=== PATIENT | female | born 1985 | race Caucasian/White ===

== ENCOUNTER → 2020-05-02 15:56 | Outpatient (CLI) | payer OTHER, SELFPAY ==
--- NOTE | ~2020-05-02 | US_ITS ---
EXAMINATION: US thyroid DATE: 05/02/2020 16:16 INDICATION: Disorder of thyroid. Hypothyroidism. TECHNIQUE: Multiple ultrasound images of the thyroid were obtained. COMPARISON: None. FINDINGS: The right thyroid lobe measures 7.2 x 1.9 x 1.2 cm. The left thyroid lobe measures 6.7 x 1.7 x 1.6 c m. The thyroid is diffusely heterogeneous and hypoechoic with increased vascularity. No discrete nod ule. IMPRESSION: 1. Heterogeneous, hypervascular thyroid, consistent with chronic lymphocytic (Odilia) thyroiditis. Reviewed, dictated and finalized at location A. 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 Heterogeneous, hypervascular thyroid, consistent with chronic lymphocytic (H ashimoto) thyroiditis.
== END ==
PROVIDERS: PCP Internal Medicine; Visit Provider Nurse Practitioner
DX: E03.9 Hypothyroidism, unspecified (principal)
CPT/HCPCS: 76536

== ENCOUNTER 2023-02-26 10:17 | Emergency (ER) | payer OTHER, SELFPAY ==
--- NOTE | ~2023-02-26 | US_ITS ---
EXAMINATION: US OB <=14 wk fetus w TV DATE: 02/26/2023 11:52 INDICATION: Vaginal bleeding during first trimester . TECHNIQUE: Real-time pelvic ultrasound utilizing both a transvaginal and transabdominal probe was pe rformed. The interpreting radiologist was not present for the study. COMPARISON: None. FINDINGS: The retroverted uterus measures 8.7 x 4.9 x 4.8 cm. 4 mm nabothian cyst at the cervix. The endometria l complex appears somewhat heterogeneous measuring up to 5 mm in thickness with no evident intrauteri ne gestational sac. The right ovary measures 3.8 x 2.0 x 1.7 cm. The left ovary measures 3.7 x 2.0 x 2.1 cm. Vascular flow identified in both ovaries on color Doppler. There are few subcentimeter anecho ic cysts/follicles at both ovaries. No other abnormal masses identified at the bilateral adnexal lorraine ons. There is minimal free fluid in the pelvis. IMPRESSION: 1. No evident intrauterine gestational sac for which differential would include early , fail ed or ectopic although no lesions suspicious for ectopic are identified . Recommend follow-up with serial beta-hCG levels. Reviewed, dictated and finalized at location A. IMPRESSION: 1. No evident intrauterine gestational sac for which differential would include early , failed or ectopic although no lesions alexander picious for ectopic are identified. Recommend follow-up with serial b eta-hCG levels.
[2023-02-26 10:25] VITALS: BP 150/101; PULSE 85; RESP 18; TEMP 36.9; O2SAT 100
--- NOTE | 2023-02-26 10:43 | ED.GENADULT ---
HPI - General Adult General Chief complaint: Vaginal Bleeding Stated complaint: vb Time Seen by Provider: 02/26/23 10:21 History of Present Illness HPI narrative: Kassie Alberto is a 38 y/o female who reports she is and took a positive test at home two days ago which would put her at 6 weeks 2 days. She states that she started to have lower back pain 5 days ago that has progressively worsened and she started to have vaginal bleeding today while walking her dog that is similar to her menstrual cycle. Denies any abdominal pain/ nausea/vomiting. Related Data Home Medications Medication Instructions Recorded Confirmed levothyroxine 50 mcg tablet 50 mcg 02/26/23 Allergies Allergy/AdvReac Type Severity Reaction Status Date / Time No Known Allergies Allergy Unverified 02/26/23 10:32 Review of Systems Review of Systems: CONSTITUTIONAL: Denies fever, chills, or sweats. EYES: Denies visual changes, redness, or discharge. ENT: Denies rhinorrhea, congestion, sore throat, or otalgia. CARDIOVASCULAR: Denies chest pain, palpitations, or edema. RESPIRATORY: Denies cough or dyspnea. GASTROINTESTINAL: Denies abdominal pain, nausea, vomiting, or diarrhea. GENITOURINARY: Denies dysuria or hematuria. SKIN: Denies rash or itching. MUSCULOSKELETAL: complains of lower back pain, no joint pain, or myalgia. NEUROLOGIC: Denies headache, numbness, dizziness, or weakness. PSYCHIATRIC: Denies anxiety or depression. [facility] Family History Family History Other Cerebrovascular accident Diabetes mellitus Family history of allergic disorder Family history of cardiovascular disease Family history of malignant neoplasm Hypertension Social History Social History Smoking status: Current every day smoker Alcohol intake: current Exam Narrative: GENERAL: Well-appearing, well-nourished, and in no acute distress. HEAD: Normocephalic, atraumatic. EYES: PERRLA and EOMI. ENT: Nares clear, no rhinorrhea or epistaxis. Mucous membranes moist. Oropharynx without tonsillar hypertrophy exudate or other lesions. NECK: Supple. No adenopathy or masses. No carotid bruits or JVD CHEST: Clear to auscultation. No respiratory distress. No wheezes rales or rhonchi HEART: Regular rate and rhythm. No murmur heard. Normal peripheral pulses. ABDOMEN: Soft, nontender, nondistended, normal active bowel sounds. EXTREMITIES: Normal range of motion. No edema. SKIN: Warm, dry, no rash. NEURO: No focal deficits. Alert and oriented x3. PSYCH: Normal mood and affect. Course Vital Signs Vital signs: Vital Signs Temperature 36.9 C 02/26/23 10:25 Pulse Rate 85 02/26/23 10:25 Respiratory Rate 18 02/26/23 10:25 Blood Pressure 150/101 H 02/26/23 10:25 Pulse Oximetry 100 02/26/23 10:25 Oxygen Delivery Room Air 02/26/23 10:25 Temperature 36.9 C 02/26/23 10:25 Pulse Rate 85 02/26/23 10:25 Respiratory Rate 18 02/26/23 10:25 Blood Pressure 150/101 H 02/26/23 10:25 Pulse Oximetry 100 02/26/23 10:25 Oxygen Delivery Room Air 02/26/23 10:25 Medical Decision Making MDM Narrative Medical decision making narrative: Patients labs are stable/ Beta quant is negative/ urine preg is negative US is not showing evidence of IUP or ectopic pt is RH negative - called Dr. Treviño regarding pt's case and she confirms that pt does not need the Rhogam shot as of now since there is no evidence of a . Patient updated on results and plan for d/c home with follow up wtih OB Patient verbalizes understanding and all questions answered. Differential Diagnosis Differential Diagnosis: / Ectopic / Threatened miscarriage/ Menstural cycle Medical Records Medical records reviewed: Yes I reviewed the external patient's medical records. Vital Signs Vital Signs: Vital Signs
[2023-02-26 10:45] LABS: Basophils Percent Auto 0.4 % (0.2-1.2); Eosinophils Absolute Auto 0.2 K/mm3 (0-0.3); Eosinophils Percent Auto 1.7 % (0-4.4); Hematocrit 41.7 % (37.0-47.0); Hemoglobin 14.1 g/dL (12.0-15.0); Immature Granulocyte Absolute 0.02 K/mm3 (0.00-0.031); Immature Granulocyte Percent A 0.2 % (0-0.5); Lymphocytes Absolute Auto 3.07 K/mm3 (0.9-3.2); Lymphocytes Percent Auto 30.7 % (18.3-44.2); Mean Corpuscular HGB Conc 33.8 g/dl (32-36); Mean Corpuscular Hemoglobin 31.4 pg (26-34); Mean Corpuscular Volume 92.9 fl (80-100); Mean Platelet Volume 10.8 fl (7.4-10.4); Monocytes Absolute Auto 0.5 K/mm3 (0.1-0.6); Monocytes Percent Auto 5.1 % (2.6-8.5); Neutrophils Absolute Auto 6.2 K/mm3 (1.3-6.7); Neutrophils Percent Auto 61.9 % (45.5-73.1); Platelet Count Result 239 k/mm3 (150-375); Red Blood Count 4.49 M/mm3 (4.2-5.4); Red Cell Distribution Width 12.2 % (11.5-14.5)
[2023-02-26 11:18] LABS: Beta HCG Quantitative < 2.39 mIU/ML
[2023-02-26 12:28] VITALS: BP 120/87; PULSE 88; RESP 18; O2SAT 99
== END 2023-02-26 12:29 | disposition home or self-care (01) ==
PROVIDERS: Emergency Provider Nurse Practitioner Family; PCP Nurse Practitioner Family
DX: N93.9 Abnormal uterine and vaginal bleeding, unspecified (principal); F17.200 Nicotine dependence, unspecified, uncomplicated
CPT/HCPCS: 36415; 76801; 76817; 84702; 85025; 85461; 86850; 86900; 86901; 90384; 99284; J2790

== ENCOUNTER 2023-12-05 11:32 | Outpatient (RCR) | payer OTHER, SELFPAY ==
[2023-12-05] MEDS: RHO(D) IMMUNE GLOBULIN 300 MCG/2 ML SYRINGE IM (13:47)
== END 2024-03-04 23:59 | disposition home or self-care (01) ==
LOC: ANHLAB 11:32
PROVIDERS: PCP Nurse Practitioner Family; Visit Provider Obstetrics & Gynecology
DX: Z29.13 Encounter for prophylactic Rho(D) immune globulin (principal); O36.0190 Maternal care for anti-D [Rh] antibodies, unspecified trimester, not applicable or unspecified; Z3A.00 Weeks of gestation of pregnancy not specified
CPT/HCPCS: 36415; 85461; 86850; 86900; 86901; 90384; 96372; J2790

== ENCOUNTER 2024-02-20 08:58 | Outpatient (RCR) | payer OTHER, SELFPAY ==
[2023-12-26 10:55] VITALS: BP 118/68; PULSE 91
[2024-01-02 11:02] VITALS: BP 120/73; PULSE 92
[2024-01-09 16:01] VITALS: BP 123/76; PULSE 92
[2024-01-16 09:38] VITALS: BP 116/72; PULSE 85
[2024-01-23 09:39] VITALS: BP 117/73; PULSE 95
[2024-01-30 13:22] VITALS: BP 119/70; PULSE 90
[2024-02-06 10:29] VITALS: BP 116/76; PULSE 89
[2024-02-13 09:39] VITALS: BP 117/62; PULSE 76
--- NOTE | ~2024-02-20 | US_ITS ---
EXAMINATION: US OB BPP wo non-stress DATE: 02/20/2024 10:01 INDICATION: Advanced maternal age. Hypothyroidism. Third trimester. TECHNIQUE: Real-time pelvic ultrasound was performed. COMPARISON: Ultrasound 02/13/2024 FINDINGS: There is a single living fetus in vertex presentation. The placenta is anterior. heart rate is 155 beats per minute (bpm). The deepest vertical pocket is 6.0 cm, which is normal. Biophysical profile performed by the technologist: breathing (30 sec sustained breathing in 30 minutes): 2 out of 2 movement (3 gross body movements in 30 minutes): 2 out of 2 tone (one episode of mjmnzli-drlpgrevl-cyiuxxg limb movement): 2 out of 2 Amniotic fluid pocket (2 cm): 2 out of 2 Total score: 8 out of 8 IMPRESSION: 1. Single living fetus in vertex presentation. 2. Biophysical profile 8 out of 8. Reviewed, dictated and finalized at location A.
--- NOTE | ~2024-02-20 | US_ITS ---
EXAMINATION: US OB BPP wo non-stress DATE: 02/06/2024 11:06 INDICATION: Advanced maternal age TECHNIQUE: Real-time pelvic ultrasound was performed. The interpreting radiologist was not present fo r the study. COMPARISON: None. FINDINGS: There is a single living fetus in vertex presentation. The placenta is anterior. cardiac activ ity and movement are demonstrated. heart rate is 148 beats per minute (bpm). Biophysical profile performed by the technologist: breathing (30 sec sustained breathing in 30 minutes): 2 out of 2 movement (3 gross body movements in 30 minutes): 2 out of 2 tone (one episode of jcndhrs-nsuxzslpv-ciudcro limb movement): 2 out of 2 Amniotic fluid pocket (2 cm): 2 out of 2 Total score: 8 out of 8 IMPRESSION: 1. Single living intrauterine in vertex presentation with heart rate of 148 bpm. 2. Normal placenta. 3. Biophysical profile 8 out of 8. Reviewed, dictated and finalized at location B.
--- NOTE | ~2024-02-20 | US_ITS ---
EXAMINATION: US OB BPP wo non-stress DATE: 02/13/2024 09:59 INDICATION: Advanced maternal age and third trimester . Hypothyroidism. TECHNIQUE: Real-time pelvic ultrasound was performed. The interpreting radiologist was not present fo r the study. COMPARISON: None. FINDINGS: There is a single living fetus in vertex presentation. The placenta is anterior. heart rate is 140 beats per minute (bpm). Amniotic fluid volume is subjectively normal with normal deepest vertica l pocket measurement of 7.3 cm. Biophysical profile performed by the technologist: breathing (30 sec sustained breathing in 30 minutes): 2 out of 2 movement (3 gross body movements in 30 minutes): 2 out of 2 tone (one episode of eycbhge-yqincnlgl-zqmodcg limb movement): 2 out of 2 Amniotic fluid pocket (2 cm): 2 out of 2 Total score: 8 out of 8 IMPRESSION: 1. Single living fetus in vertex presentation with heart rate of 140 bpm. 2. Biophysical profile 8 out of 8. Reviewed, dictated and finalized at location A.
--- NOTE | ~2024-02-20 | US_ITS ---
EXAMINATION: US OB BPP wo non-stress DATE: 01/30/2024 13:23 INDICATION: Advanced maternal age and hypothyroidism during third trimester TECHNIQUE: Real-time pelvic ultrasound was performed. The interpreting radiologist was not present fo r the study. COMPARISON: None. FINDINGS: There is a single living fetus in vertex presentation. The placenta is anterior. heart rate is 141 beats per minute (bpm). Amniotic fluid volume is subjectively normal with normal because vertica l pocket of 7.9 cm Biophysical profile performed by the technologist: breathing (30 sec sustained breathing in 30 minutes): 2 out of 2 movement (3 gross body movements in 30 minutes): 2 out of 2 tone (one episode of hbykkcr-iyasaxayd-gthzqjd limb movement): 2 out of 2 Amniotic fluid pocket (2 cm): 2 out of 2 Total score: 8 out of 8 IMPRESSION: 1. Single living fetus in vertex presentation with heart rate of 141 bpm. 2. Biophysical profile 8 out of 8. Reviewed, dictated and finalized at location A.
[2024-02-20 09:34] VITALS: BP 125/68; PULSE 97
== END 2024-03-25 23:59 | disposition home or self-care (01) ==
LOC: ANHOBOP 08:58
PROVIDERS: PCP Nurse Practitioner Family; Visit Provider Obstetrics & Gynecology
DX: O09.513 Supervision of elderly primigravida, third trimester (principal); O99.283 Endocrine, nutritional and metabolic diseases complicating pregnancy, third trimester; E03.9 Hypothyroidism, unspecified; Z3A.31 31 weeks gestation of pregnancy; Z3A.32 32 weeks gestation of pregnancy; Z3A.33 33 weeks gestation of pregnancy; Z3A.34 34 weeks gestation of pregnancy; Z3A.35 35 weeks gestation of pregnancy; Z3A.37 37 weeks gestation of pregnancy; Z3A.38 38 weeks gestation of pregnancy; Z3A.39 39 weeks gestation of pregnancy
CPT/HCPCS: 59025; 76819

== ENCOUNTER 2024-02-22 16:27 | Inpatient (IN) | payer OTHER, SELFPAY ==
[2024-02-22] VITALS (14 sets, daily range): BP systolic 108–133; BP diastolic 57–82; PULSE 81–97; TEMP 36.6; BMI 34.0
[2024-02-22 17:24] LABS: Basophils Percent Auto 0.3 % (0.2-1.2); Eosinophils Absolute Auto 0.3 K/mm3 (0-0.3); Eosinophils Percent Auto 1.9 % (0-4.4); Hematocrit 35.1 % (37.0-47.0); Hemoglobin 11.8 g/dL (12.0-15.0); Immature Granulocyte Absolute 0.08 K/mm3 (0.00-0.031); Immature Granulocyte Percent A 0.6 % (0-0.5); Lymphocytes Absolute Auto 3.55 K/mm3 (0.9-3.2); Lymphocytes Percent Auto 24.6 % (18.3-44.2); Mean Corpuscular HGB Conc 33.6 g/dl (32-36); Mean Corpuscular Hemoglobin 31.6 pg (26-34); Mean Corpuscular Volume 93.9 fl (80-100); Mean Platelet Volume 11.3 fl (7.4-10.4); Monocytes Absolute Auto 0.8 K/mm3 (0.1-0.6); Monocytes Percent Auto 5.7 % (2.6-8.5); Neutrophils Absolute Auto 9.7 K/mm3 (1.3-6.7); Neutrophils Percent Auto 66.9 % (45.5-73.1); Platelet Count Result 257 k/mm3 (150-375); Red Blood Count 3.74 M/mm3 (4.2-5.4); Red Cell Distribution Width 13.3 % (11.5-14.5); White Blood Count 14.5 K/mm3 (4.5-10.0)
[2024-02-22] MEDS: DINOPROSTONE 10 MG VAG INSERT VAGINAL (17:33)
[2024-02-22 18:42] LABS: HIV 1/2 Ab P24 Ag Result Negative (Negative)
--- NOTE | 2024-02-22 20:26 | PM.IMHP ---
H&P: HPI History of Present Illness Date/Time: 02/22/24 20:30 Chief Complaint: IOL Narrative: Kassie is a 39yo @ 39.6wks who presents for IOL. She has had regular care and co-management with [facility]. She has been undergoing routine weekl testing as well. She denies any regular contractions. No VB or LOF. She reports good movement. No painful lesions concerning for HSV outbreak; has been taking her valtrex. Her is complicated by: - AMA; ASA; NIPT/MFM referral for anatomy - Rh negative; s/p rhogam - Hypothyroidism; thyroid labs qTrimester - Tobacco abuse; encouraged to stop - H/o genital HSV; ppx at 36wks Review of Systems Constitutional: Constitutional: Denies chills, Denies fever(s) and Denies headache(s) Eyes: Eyes: Denies change in vision ENT: Denies headache(s) Cardiovascular: Cardiovascular: Denies chest pain and Denies dyspnea Respiratory: Respiratory: Denies dyspnea Genitourinary: Genitourinary: Denies abnormal vaginal bleeding and Denies vaginal discharge Neurologic: Denies headache(s) Psychiatric: Psychiatric: Denies anxiety and Denies depression [facility] Past Medical History Medical History Cholecystectomy planned Hypothyroid Tonsillectomy planned Family History Family History Other Cerebrovascular accident Diabetes mellitus Family history of allergic disorder Family history of cardiovascular disease Family history of malignant neoplasm Hypertension Lung cancer Social History Social History Smoking packs per day: 0.5 Smoking cigarettes per day: 10.0 Years smoked: 10 Smoking pack-years: 5.00 Smoking status: Current every day smoker Tobacco type: cigarettes Second hand tobacco smoke exposure: No Alcohol intake: former Substance use: never Do You Feel Safe in your Home?: Yes Lack of Transportation: No Lack of Food: Never True Current Housing: I Have Housing Concerned About Future Housing: No Difficulty Paying Gas/Electric Bills: No Difficulty Paying for Meds: No Currently Unemployed: No Education: Associate Degree Difficulty w/ Childcare or Family Care: No Living arrangements: with family Occupation/Education: occupation Gender identity (if verbalized by the patient): Female Sexual Orientation (if Verbalized by the Patient): Straight or Heterosexual Spiritual care concerns: No Meds Home Medications and Allergies Home Medications Medication Instructions Recorded Confirmed Type aspirin 81 mg tablet 162 mg PO DAILY 01/30/24 02/18/24 History prenat.vits,benjy,adj-dbiq-xnoan 1 tablet PO QAM 01/30/24 02/22/24 History levothyroxine 25 mcg capsule 25 mcg PO DAILY #90 caps 02/04/24 02/22/24 Rx levothyroxine 150 mcg capsule 150 mcg PO DAILY 02/13/24 02/22/24 History valacyclovir 500 mg tablet 500 mg PO DAILY 02/22/24 02/22/24 History (Valtrex) Allergies Allergy/AdvReac Type Severity Reaction Status Date / Time No Known Allergies Allergy Verified 02/13/24 10:23 Exam Const: General: cooperative, healthy appearing, comfortable and no acute distress Nutritional Appearance: obese Orientation/consciousness: patient oriented x3 Resp: Effort & Inspection: normal respiratory effort Cardio: Rate: regular rate GI: GI Palp: No abdominal tenderness : Other: FHT's: 130's/ mod ed/ + accels/ no decels - cat 1 TOCO: irregular ctxs Cervix: 1/thick/-2 Membranes: intact Presentation: cephalic Skin: General skin exam: normal color Neuro: General: patient oriented x3 Extrem: General: normal to inspection Psych: Appearance: grossly normal Affect: normal affect Attitude: cooperative Assessment and Plan Assessment and plan (1) Encounter for induction of labor: Code(s): Z34.90 - Encounter for supervision of
[2024-02-22 22:00] LABS: Rapid Plasma Reagin Non-Reactive (NonReactive)
[2024-02-23] VITALS (238 sets, daily range): BP systolic 92–140; BP diastolic 36–124; PULSE 70–136; TEMP 36.3–36.7; O2SAT 91–100
--- NOTE | 2024-02-23 06:17 | WPDANESEPP ---
Anes - Eval Pre Procedure Procedure: Labor Epidural Date/Time: 02/23/24 06:17 Surgeon: Juan Preop Diagnosis: Labor Pain Pre Op Diagnosis: Induction of Labor Patient Data Age: 39 Gender: F Height: 1.68 m Weight: 95.5 kg Last Vital Signs Temp 36.6 C 02/22/24 21:30 Pulse 84 02/23/24 06:16 BP 103/62 02/23/24 06:16 O2 Del Method Room Air 02/22/24 17:17 Allergies Allergy/AdvReac Type Severity Reaction Status Date / Time No Known Allergies Allergy Verified 02/13/24 10:23 Home Medications Medication Instructions Recorded Confirmed Type aspirin 81 mg tablet 162 mg PO DAILY 01/30/24 02/18/24 History prenat.vits,benjy,xxz-dsri-pwhoi 1 tablet PO QAM 01/30/24 02/22/24 History levothyroxine 25 mcg capsule 25 mcg PO DAILY #90 caps 02/04/24 02/22/24 Rx levothyroxine 150 mcg capsule 150 mcg PO DAILY 02/13/24 02/22/24 History valacyclovir 500 mg tablet 500 mg PO DAILY 02/22/24 02/22/24 History (Valtrex) Laboratory Tests 02/22/24 02/22/24 17:12 18:15 WBC 14.5 H K/mm3 (4.5-10.0) RBC 3.74 L M/mm3 (4.2-5.4) Hgb 11.8 L g/dL (12.0-15.0) Hct 35.1 L % (37.0-47.0) MCV 93.9 fl (80-100) MCH 31.6 pg (26-34) MCHC 33.6 g/dl (32-36) RDW 13.3 % (11.5-14.5) Plt Count 257 k/mm3 (150-375) MPV 11.3 H fl (7.4-10.4) Immature Gran % (Auto) 0.6 H % (0-0.5) Neut % (Auto) 66.9 % (45.5-73.1) Lymph % (Auto) 24.6 % (18.3-44.2) [place] % (Auto) 5.7 % (2.6-8.5) Eos % (Auto) 1.9 % (0-4.4) Baso % (Auto) 0.3 % (0.2-1.2) Lymph # (Auto) 3.55 H K/mm3 (0.9-3.2) [place] # (Auto) 0.8 H K/mm3 (0.1-0.6) Eos # (Auto) 0.3 K/mm3 (0-0.3) Baso # (Auto) 0.0 K/mm3 (0.0-0.1) Abs Immat Gran (auto) 0.08 H K/mm3 (0.00-0.031) Absolute Neuts (auto) 9.7 H K/mm3 (1.3-6.7) Absolute Nucleated RBC 0.000 K/mm3 (0.0-0.012) Nucleated RBC % 0.0 % (0.0-0.2) RPR Non-reactive (NonReactive) HIV 1&2 Ab/P24 Ag 4thGn Negative (Negative) Blood Type B Negative Antibody Screen Negative : gestational age (SHIVAM 02/23/24, ) Patient hx anesthesia problems: none Family hx anesthesia problems: none Results Review: All pre-operative results and documents have been reviewed as part of the pre-operative evaluation. [facility] Past Medical History Medical History Cholecystectomy planned Hypothyroid Tonsillectomy planned Family History Family History Other Cerebrovascular accident Diabetes mellitus Family history of allergic disorder Family history of cardiovascular disease Family history of malignant neoplasm Hypertension Lung cancer Social History Social History Smoking packs per day: 0.5 Smoking cigarettes per day: 10.0 Years smoked: 10 Smoking pack-years: 5.00 Smoking status: Current every day smoker Tobacco type: cigarettes Second hand tobacco smoke exposure: No Alcohol intake: former Substance use: never Do You Feel Safe in your Home?: Yes Lack of Transportation: No Lack of Food: Never True Current Housing: I Have Housing Concerned About Future Housing: No Difficulty Paying Gas/Electric Bills: No Difficulty Paying for Meds: No Currently Unemployed: No Education: Associate Degree Difficulty w/ Childcare or Family Care: No Living arrangements: with family Occupation/Education: occupation Gender identity (if verbalized by the patient): Female Sexual Orientation (if Verbalized by the Patient): Straight or Heterosexual Spiritual care concerns: No Exam Day of Procedure 02/23/24 06:17 Patient weight: normal Heart: regular rate and rhythm Lungs: normal air movement Airway: M
[2024-02-23] MEDS: LACTATED RINGERS 1,000 ML 125 ML IV CONT ×3 (06:22→16:31)
[2024-02-23] MEDS: OXYTOCIN 30 UNITS/NS 500 ML 30 UNITS/500 ML BAG IV CONT (06:22)
--- NOTE | 2024-02-23 08:39 | PM.OBPNLAB ---
Pain Control Date/time seen: 02/23/24 08:39 Pain control: tolerating well Pelvic Exam Dilation (cm): 3 Effacement (%): 0 station: -2 Amniotic membrane status: Ruptured (AROM, clear 0745) Contractions Monitor mode: External Contraction frequency: 4 Status status: Category l Assessment and Plan Pitocin rate (mU/min): 2 Assessment: induction ongoing Plan: continuous present management
--- NOTE | 2024-02-23 11:43 | PM.OBPNLAB ---
Pain Control Date/time seen: 02/23/24 11:43 Pain control: epidural Pelvic Exam Dilation (cm): 5 Effacement (%): 50 station: -2 Amniotic membrane status: Ruptured (AROM, clear 0745) Contractions Monitor mode: Internal Contraction pattern: Irregular Status status: Category l Assessment and Plan Pitocin rate (mU/min): 8 Assessment: induction ongoing Plan: continuous present management Comments: - IUPC placed on this exam to verify contractions are adequate
[2024-02-23] MEDS: ACETAMINOPHEN 500 MG TABLET 1000 MG PO (12:02)
--- NOTE | 2024-02-23 15:04 | PM.OBPNLAB ---
Pain Control Date/time seen: 02/23/24 15:04 Pain control: epidural Pelvic Exam Dilation (cm): 5 (.5) Effacement (%): 50 station: -2 Amniotic membrane status: Ruptured (AROM, clear 0745) Contractions Monitor mode: Internal Contraction frequency: 3 Contraction pattern: Irregular Status status: Category l Assessment and Plan Pitocin rate (mU/min): 16 Assessment: induction ongoing Plan: continuous present management
--- NOTE | 2024-02-23 19:55 | PM.OBPNLAB ---
Pain Control Date/time seen: 02/23/24 19:55 Pain control: epidural Pelvic Exam Dilation (cm): 8 Effacement (%): 80 station: -2 Amniotic membrane status: Ruptured (AROM, clear 0745) Comments: head: ROP/almost ROT Contractions Monitor mode: Internal Contraction frequency: 2 Contraction pattern: Regular Status status: Category ll Assessment and Plan Pitocin rate (mU/min): 26 Assessment: active labor Plan: continuous present management
[2024-02-23] MEDS: OXYTOCIN 30 UNITS/NS 500 ML 30 UNITS/500 ML BAG 999 UNITS IV CONT (21:00)
--- NOTE | 2024-02-23 21:06 | PM.OBPRVD ---
OB - Vaginal Delivery Note Procedure Delivery date: 02/23/24 Events: Other (AMA, hypothyroidism) Induction method: Per Cervidil Protocol Delivery augmentation: Rupture of Membranes and Pitocin Delivery monitor: External FHT and Internal Uterine Route of delivery: Episiotomy description: None Laceration Description: Perineal - 1st Degree Delivery repair: vicryl Specimen: No Quantitative Blood Loss (ml): 200 Anesthesia type: Epidural Disposition: Floor Complications: No immediate complications Elizabeth Baby Date of : 02/23/24 Time of : 20:51 Gestational Age by Date: 40 gender: Female presentation: vertex Placenta delivery description: Expressed Cord Vessel Description: 3 Vessels and Delayed Cord Clamping score one minute: 9 score five minutes: 9 Narrative: Kassie rapidly progressed to complete dilation with strong desire to push. She pushed for 1 contraction and delivered the head over intact perineum. No nuchal cord was palpated. She easily delivered the 's shoulders and body without complication. The was immediately placed skin to skin and she was stimulated and cry was then heard. Delayed cord clamping was performed. The umbilical cord was then doubly clamped and cut. A segment of cord was collected for cord gases. The remaining cord blood was collected for typing. With Pitocin running and gentle downward traction on the cord, the placenta delivered without complication. Bimanual massage was performed and good uterine tone with minimal bleeding was noted. She was examined and a small first-degree perineal laceration was identified. The laceration was repaired using 2-0 Vicryl; 2 stitches were placed and good reapproximation and hemostasis were noted. Her fundus remained firm and minimal bleeding was noted. Sponge, lap, instrument, and needle counts were correct at the end of the procedure. Mom and baby were left bonding in the birthing suite in stable condition.
[2024-02-23] MEDS: OXYTOCIN 30 UNITS/NS 500 ML 30 UNITS/500 ML BAG 125 UNITS IV CONT (21:49)
[2024-02-24 00:24] VITALS: BP 130/74; PULSE 90; RESP 18; TEMP 37.2; O2SAT 99
[2024-02-24 04:17] VITALS: BP 127/76; PULSE 80; RESP 18; TEMP 36.9; O2SAT 99
[2024-02-24 05:06] LABS: Hemoglobin 10.6 g/dL (12.0-15.0); Mean Corpuscular HGB Conc 33.1 g/dl (32-36); Mean Corpuscular Hemoglobin 31.6 pg (26-34); Mean Corpuscular Volume 95.5 fl (80-100); Mean Platelet Volume 11.5 fl (7.4-10.4); Platelet Count Result 259 k/mm3 (150-375); Red Blood Count 3.35 M/mm3 (4.2-5.4); Red Cell Distribution Width 13.3 % (11.5-14.5); White Blood Count 25.4 K/mm3 (4.5-10.0)
[2024-02-24] MEDS: LEVOTHYROXINE SODIUM 100 MCG TABLET PO (06:53)
--- NOTE | 2024-02-24 06:53 | P.PNOB_ITS ---
OB - PN: Subj Subjective Date/time seen: 02/24/24 06:53 Narrative: PPD#1 Kassie reports doing well today. 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 Her pain is controlled. She is tolerating regular diet, voiding, passing gas, and ambulating without issues. She is breast feeding. OB - PN: Obj Data Labs 02/24/24 03:17 Labs: Laboratory Results - last 24 hr 02/24/24 03:17 WBC 25.4 H RBC 3.35 L Hgb 10.6 L Hct 32.0 L MCV 95.5 MCH 31.6 MCHC 33.1 RDW 13.3 Plt Count 259 MPV 11.5 H Blood Type B Negative Antibody Screen TNP OB - PN A/P Assessment and Plan (1) Normal vaginal delivery of third : Code(s): O80 - Encounter for full-term uncomplicated delivery Status: Acute Plan day: 1 Plan: routine care and discharge home (tomorrow) Comments: - PO pain meds - Regular diet - Ambulation and hydration encouraged - Continue putting baby to breast q2-3hr Time Spent With Patient Time: Total time spent is greater than 50% in coordination of care (as documented) at patient's floor/unit and/or counseling patient: Review of Systems Constitutional: Constitutional: Denies chills, Denies fever(s) and Denies headache(s) Eyes: Eyes: Denies change in vision ENT: Denies dizziness and Denies headache(s) Cardiovascular: Cardiovascular: Denies chest pain, Denies palpitations and Denies dyspnea Respiratory: Respiratory: Denies cough and Denies dyspnea Gastrointestinal: Gastrointestinal: Denies nausea and Denies vomiting Neurologic: Denies dizziness and Denies headache(s) Endocrine: Endocrine: Denies palpitations Exam Const: General: cooperative, comfortable and no acute distress Or ientation/consciousness: patient oriented x3 Resp: Effort & Inspection: normal respiratory effort Auscultation: clear to auscultation bilaterally Cardio: Rate: regular rate GI: Inspection: non-distended GI Palp: No abdominal tenderness and Yes Soft to palpation Auscultation: normal bowel sounds : Other: fundus firm Skin: General skin exam: normal color Neuro: General: patient oriented x3 Extrem: General: normal to inspection Psych: Appearance: grossly normal Affect: normal affect Attitude: cooperative
[2024-02-24] MEDS: LEVOTHYROXINE SODIUM 75 MCG TABLET PO (06:54)
[2024-02-24] MEDS: IBUPROFEN 600 MG TABLET PO ×2 (06:58→17:34)
[2024-02-24 07:55] VITALS: BP 113/72; PULSE 87; RESP 16; TEMP 36.6; O2SAT 100
[2024-02-24] MEDS: DOCUSATE SODIUM 100 MG CAPSULE PO ×2 (08:30→17:35)
[2024-02-24] MEDS: MULTIVIT/MIN/PREN/FOL AC/IRON TABLET 1 TAB PO (08:30)
--- NOTE | 2024-02-24 09:20 | PC.NURSE ---
Consulted with patient to assess needs related to . Discussed with mother her successes, concerns and any questions she has. We reviewed working with the , supporting breast, protecting her nipples with an optimal deep latch, good positioning. Encouraged understanding the benefits of skin to skin, responding to feeding cues, frequencies of feeding 8-12 times in 24 hours (approximately 2-3 hours), duration of feedings, milk production, intake/output feeding sheet and signs of adequate intake encouraging swallowing at the breast. Reviewed positioning and alignment, supporting breast, off-centered (asymmetrical latch) and leading with the chin with big, open, wide gape. Infant latched optimally to the [right] breast in [cradle] position. Education given to the mother of how to visualize the suckling (with good rocking jaw motion) swallows (dropping of the lower jaw) and how to listen for drinking at the breast (the ka sound). The was [able] to maintain latch. Mom has concerns if is getting enough and she isn't able to express colostrum (assured this is normal for some women, doesn't mean she doesn't have colostrum). Reviewed what to watch for with weight, jaundice, and output. Mother successfully breastfed her other children with no supply issues. We also discussed use of a pacifier to reduce SIDS and how to be sure she puts baby to breast with feeding cues, instead of using the pacifier to replace frequent feeds. Mother voiced understanding of the education shared, to call for assistance if the does not latch or if there is discomfort with . Reported to the Primary RN.
[2024-02-24] MEDS: ACETAMINOPHEN 325 MG TABLET 650 MG PO (11:44)
[2024-02-24 12:30] VITALS: BP 114/70; PULSE 86; RESP 16; TEMP 36.4; O2SAT 100
--- NOTE | 2024-02-24 13:02 | WPDANLDPN2 ---
Anes-Prog Note L&D Date/Time: 02/24/24 13:02 Comfortable throughout: labor and delivery Neuraxial method: epidural Epidural/Spinal procedure site: tender Neuro status: Neuro function grossly intact. Cardiovascular status: normal Respiratory status: normal Airway patency: baseline Mental status: baseline Post-Op hydration status: normal Vital Signs: Last Vital Signs Temp 36.4 C 02/24/24 12:30 Pulse 86 02/24/24 12:30 Resp 16 02/24/24 12:30 BP 114/70 02/24/24 12:30 Pulse Ox 100 02/24/24 12:30 O2 Del Method Room Air 02/24/24 11:47 Pain score (VAS): 2/10 I/O: Intake & Output 02/23/24 02/24/24 02/24/24 23:59 07:59 15:59 Intake Total 931.3 240 Output Total 100 Balance 931.3 -100 240 Post-procedural complaints: none and other (Patient states being able to ambulate with good sensation in both legs, but legs still feel heavy with ambulation. ) Patient feedback: Patient satisfied with anesthetic care.
[2024-02-24] MEDS: RHO(D) IMMUNE GLOBULIN 300 MCG/2 ML SYRINGE IM (13:43)
--- NOTE | 2024-02-24 15:50 | PC.NURSE ---
Patient is still not feeling confident that baby is getting everything she needs at the breast. Mom has discussed this with her primary nurse who reiterated that pumping with the double electric pump isn't always a good indicator of how much milk she has. Mother was given the Is Baby Getting Enough Milk? handout as well as the hand expression handout. We reviewed hand expressing and mom was able to express some drops of colostrum. She was satisfied after she saw the drops and felt more confident that baby is getting something . We reviewed cluster feeding and milk production, supply and demand, and mom verbalized her understanding. Mom will call out with further questions or concerns. Reported to Primary RN.
[2024-02-24 19:15] VITALS: BP 131/71; PULSE 84; RESP 16; TEMP 36.2; O2SAT 100
--- NOTE | 2024-02-25 06:31 | PM.OBDSVD ---
DS: Admitting Diagnosis Discharge Date 02/25/24 Admitting Diagnosis Induction of labor DS: Discharge Diagnosis Discharge Diagnosis (1) Normal vaginal delivery of third : Code(s): O80 - Encounter for full-term uncomplicated delivery Status: Acute OB - DS: Summary OB Procedures : NST and Ultrasound OB Procedures Intrapartum: Spontaneous Vag Delivery OB Procedures: : RHo (D) lg Peripartum Data Infant Delivery Method: Natural Vaginal Laceration Description: Perineal - 1st Degree Episiotomy description: None complications: none 1: Gender: Female Status at Discharge Functional status at discharge: independent ambulation Overall status at discharge: patient is back to baseline Time Spent with Patient Time attestation: Total time spent providing and/or coordinating discharge services: Exam Const: General: cooperative, healthy appearing, comfortable and no acute distress Orientation/consciousness: patient oriented x3 Resp: Effort & Inspection: normal respiratory effort Auscultation: clear to auscultation bilaterally Cardio: Rate: regular rate GI: Inspection: non-distended GI Palp: No abdominal tenderness and Yes Soft to palpation Auscultation: normal bowel sounds : Other: fundus firm Skin: General skin exam: normal color Neuro: General: patient oriented x3 Extrem: General: normal to inspection Psych: Appearance: grossly normal Affect: normal affect Attitude: cooperative DS: Data Data Completed and Pending Labs on day of discharge: Labs from last 24 hours 02/24/24 03:17 Blood Type B Negative Antibody Screen TNP Screen Negative Baby's Blood Type O pos Baby's DIGNA Negative Doses of RhIg Required 1 Discharge Plan Discharge Attending physician on discharge: Jessica Martinez Discharging Clinician: Jessica Martinez Anticipated Discharge Date/Time: 02/25/24 10:00 Patient Disposition: Home, Self-Care Activity: may shower and pelvic rest Diet: regular Patient Instructions: Vaginal Delivery (DC) Stand Alone Forms: General Discharge Information Follow-up/Referrals: Jessica Martinez MD [Physician] - 4 Weeks Discharge Medications: New acetaminophen 325 mg Tablet 650 mg PO Q6H PRN (Reason: Mild Pain (1-3) Or Headache) Qty: 60 0RF docusate sodium 100 mg Capsule 100 mg PO BID PRN (Reason: Constipation) Qty: 60 0RF ibuprofen 600 mg Tablet 600 mg PO Q6H PRN (Reason: Cramping) Qty: 40 0RF Continued levothyroxine 25 mcg capsule 25 mcg PO DAILY Qty: 90 1RF Rx Instructions: to take with 150mcg to equal 175mcg daily levothyroxine 150 mcg capsule 150 mcg PO DAILY #2 Tablet 1 tablet PO QAM Discontinued Adult Low Dose Aspirin 81 mg Tablet 162 mg PO DAILY valacyclovir [Valtrex] 500 mg tablet 500 mg PO DAILY Date of admission: 02/22/24 16:27 Primary Care Provider: SmithSudha Admitting Provider: Jessica Martinez Attending physician on admission: Jessica Martinez Condition: Stable
[2024-02-25] MEDS: LEVOTHYROXINE SODIUM 75 MCG TABLET PO (06:40)
[2024-02-25] MEDS: LEVOTHYROXINE SODIUM 100 MCG TABLET PO (06:41)
[2024-02-25 07:10] VITALS: BP 118/75; PULSE 73; RESP 16; TEMP 36.7; O2SAT 100
[2024-02-25] MEDS: MULTIVIT/MIN/PREN/FOL AC/IRON TABLET 1 TAB PO (08:34)
[2024-02-25] MEDS: DOCUSATE SODIUM 100 MG CAPSULE PO (08:34)
--- NOTE | 2024-02-25 09:00 | PC.NURSE ---
Consulted with patient to assess needs related to . Discussed with mother her successes, concerns and any questions she has. She called out for the next feeding so we could observe the latch. We reviewed how to listen for swallowing and how mom should expect 1-2 sucks per swallow when her milk is in. She also says her nipples are tender and the pain dissipates after a few seconds while baby nurses. latched optimally to the [left] breast in [cradle] position. Demonstrated to mom how to make sure baby's bottom lip is not rolled under. Education given to the mother of how to visualize the suckling (with good rocking jaw motion) swallows (dropping of the lower jaw) and how to listen for drinking at the breast (the ka sound). The was [able] to maintain latch without discomfort to mother with frequent swallowing. Reinforced understanding of milk production, transition of milk, signs of adequate intake, transition of stool, prevention/relief of engorgement, plugged ducts, mastitis, responsive watching for feeding cues, the different methods of stimulating to breastfeed 1-3 hours after the start of the last feeding, community resources, and when to call a provider using the resource of the feeding sheet along with the mom and baby guide. Mother voiced understanding of the information shared, is confident to continue effectively her infant at home, when to call for assistance, denies any additional assistance or education at this time. Reported to the Primary RN.
[2024-02-26 15:10] VITALS: BP 132/75; PULSE 82; RESP 18; TEMP 36.9; O2SAT 99
== END 2024-02-25 16:30 | disposition home or self-care (01) | DRG 807 ==
LOC: ANHLDR 16:34 → ANHOB2 02-24 00:20
PROVIDERS: Admitting Provider Obstetrics & Gynecology; PCP Nurse Practitioner Family; Visit Provider Obstetrics & Gynecology
DX: O26.893 Other specified pregnancy related conditions, third trimester (principal); Z37.0 Single live birth; Z3A.40 40 weeks gestation of pregnancy; O70.0 First degree perineal laceration during delivery; Z67.91 Unspecified blood type, Rh negative; O99.284 Endocrine, nutritional and metabolic diseases complicating childbirth; E03.9 Hypothyroidism, unspecified; O99.334 Smoking (tobacco) complicating childbirth; F17.210 Nicotine dependence, cigarettes, uncomplicated
CPT/HCPCS: 36415; 85025; 85027; 85461; 86592; 86703; 86850; 86900; 86901; 90384; A9270; G0432; J2590; J2790; J2795; J7120